=== PATIENT | male | born 1970 | race Caucasian/White ===

== ENCOUNTER 2017-08-24 21:13 | Emergency (ER) | payer BC ==
[2017-08-24] MEDS ORDERED: Lidocaine 1% PF 5 ML VIAL ONE (21:54)
[2017-08-24] MEDS ORDERED: Sodium Bicarbonate 2.5 MEQ/5 ML VIAL ONE (21:54)
[2017-08-24] MEDS ORDERED: Bacitracin Zinc 1 Packet ONE (22:25)
== END 2017-08-24 22:31 | disposition home or self-care (01) ==
LOC: SCSER 21:13
DX: S61.012A Laceration without foreign body of left thumb without damage to nail, initial encounter (principal); W27.0XXA Contact with workbench tool, initial encounter; Z79.899 Other long term (current) drug therapy
CPT/HCPCS: 12002; J2001